=== PATIENT | male | born 1960 | race Caucasian/White ===

== ENCOUNTER 2017-01-15 08:30 | Day surgery (SDC) | payer OTHER | END 2017-01-15 10:27 | disposition home or self-care (01) | LOC: GIL 08:30 | PROVIDERS: ATTEND Internal Medicine Gastroenterology | DX: Z12.11 Encounter for screening for malignant neoplasm of colon (principal); Z53.9 Procedure and treatment not carried out, unspecified reason ==

== ENCOUNTER 2017-04-17 07:22 | Day surgery (SDC) | payer OTHER ==
[~2017-04-17] VITALS: Ht 160 cm; Wt 73.1 kg
[2017-04-17 08:49] VITALS: Ht 160 cm; Wt 73.1 kg
[2017-04-17] MEDS ORDERED: SITAGLIPTIN (08:58)
[2017-04-17] MEDS ORDERED: METFORMIN (08:58)
[2017-04-17] MEDS ORDERED: ASPI81TA3 PO (08:58)
[2017-04-17] MEDS ORDERED: AMLO-145 PO (08:58)
[2017-04-17] MEDS ORDERED: ATOR10TA65 PO (08:58)
[2017-04-17] MEDS ORDERED: BENA10TA48 PO (08:58)
--- NOTE | 2017-04-17 10:27 | OPPN ---
Date/Time of Note Date/Time of Note DATE: 04/17/17 TIME: 10:23 Operative Report Preoperative Diagnosis Screening colonoscopy Postoperative Diagnosis Small right colon polyp removed . Internal hemorrhoid Operation/Procedure Performed Colonoscopy and biopsy Anesthesia: other Estimated blood loss: none BHAVANI VAZQUEZ MD Apr 17, 2017 10:27
[2017-04-17] MEDS ORDERED: MIDAZOLAM 1 MG/ML 2 ML INJ ONE ×2 (10:30)
[2017-04-17] MEDS ORDERED: FENTAnyl 50 MCG/ML VIAL ONE (10:30)
[2017-04-17 10:50] VITALS: BP 115/78; RESP 12
--- NOTE | 2017-04-17 12:04 | GILP ---
DATE OF PROCEDURE: 04/17/2017 PROCEDURE PERFORMED: Colonoscopy and biopsy. PREOPERATIVE DIAGNOSIS: Screening colonoscopy. POSTOPERATIVE DIAGNOSES: 1. Colonoscopy all the way to the cecum. 2. Two small right colon polyps were removed using the biopsy forceps. 3. Internal hemorrhoids. INDICATION: Mr. Roly Sahu is a 57-year-old male patient who was scheduled for screening colonoscopy. The procedure and possible complications were well explained to the patient. The patient understood and consented to the procedure. DESCRIPTION OF PROCEDURE: Under influence of fentanyl and Versed, the colonoscope was carefully introduced in the rectum, and under direct vision, it was advanced all the way to the cecum. FINDINGS: The patient had 2 small right colon polyps and they were removed using the biopsy forceps. The patient was noted to have internal hemorrhoids. He tolerated the procedure very well. There was no complication from the procedure. At the end of procedure, he was awake with stable vital signs and he was discharged home in the care of his family. IMPRESSION: 1. Colonoscopy all the way to the cecum. 2. Two small right colon polyps were removed using the biopsy forceps. 3. Internal hemorrhoids. PLAN: 1. Await histopathology report. 2. Next screening colonoscopy in 5 years. Dictated By: MD MAXIMILIAN Fulton/jordan/dunia /Document#: [id number] CC: Eddie Thomas MD;*[facility]*
== END 2017-04-17 14:42 | disposition home or self-care (01) ==
LOC: GIL 07:22
PROVIDERS: ATTEND Internal Medicine Gastroenterology
DX: Z12.11 Encounter for screening for malignant neoplasm of colon (principal); K64.8 Other hemorrhoids; K63.5 Polyp of colon; E11.9 Type 2 diabetes mellitus without complications; I10 Essential (primary) hypertension
CPT/HCPCS: 45380; 82962; 88305; J2250; J3010; Z7610